=== PATIENT | female | born 1975 | race Caucasian/White ===

== ENCOUNTER 2016-04-28 15:25 | Emergency (ER) | payer BC | END 2016-04-28 17:30 | disposition home or self-care (01) | LOC: ER 15:25 | DX: G89.18 Other acute postprocedural pain (principal); K08.89 Other specified disorders of teeth and supporting structures; R60.9 Edema, unspecified | CPT/HCPCS: 96372 ==

== ENCOUNTER 2016-05-07 12:49 | Emergency (ER) | payer BC | END 2016-05-07 14:43 | disposition home or self-care (01) | LOC: ER 12:49 | DX: G25.9 Extrapyramidal and movement disorder, unspecified (principal); S60.221A Contusion of right hand, initial encounter ==